=== PATIENT | female | born 1995 | race Hispanic/Latino ===

== ENCOUNTER 2021-12-10 14:36 | Emergency (ER) | payer MEDICAID, SELFPAY ==
[2021-12-10] MEDS ORDERED: Heparin 10,000 UNITS/ 10 ML VIAL SLOW IVP PRN ×2 (18:15→18:30)
== END 2021-12-10 19:48 | disposition home or self-care (01) ==
LOC: CSHERS 14:36
DX: N18.6 End stage renal disease (principal); E87.5 Hyperkalemia; Z99.2 Dependence on renal dialysis
CPT/HCPCS: 90935; 99282; G0257; J1644